=== PATIENT | male | born 1935 | race Caucasian/White ===

== ENCOUNTER 2019-02-18 20:51 | Observation (INO) | payer MEDICARE, OTHER ==
[2019-02-18 23:11] LABS: ADD MAN DIFF? NO
[2019-02-18 23:13] LABS: BASOPHIL # 0.1 10^3/ul (0.0-0.1); BASOPHILS % 0.6 % (0.0-2.0); EOSINOPHILS # 0.2 10^3/ul (0.0-0.5); EOSINOPHILS % 1.2 % (0.0-7.0); HEMATOCRIT 40.1 % (42.0-52.0); HEMOGLOBIN 12.5 g/dl (14.0-18.0); LYMPHOCYTES # 3.6 10^3/ul (0.8-2.9); MEAN CORPUSCULAR HEMOGLOBIN 25.1 pg (29.0-33.0); MEAN CORPUSCULAR HGB CONC 31.2 g/dl (32.0-37.0); MEAN CORPUSCULAR VOLUME 80.4 fl (82.0-101.0); MEAN PLATELET VOLUME 11.6 fl (7.4-10.4); MONOCYTE # 0.9 10^3/ul (0.3-0.9); MONOCYTES % 6.8 % (0.0-11.0); NEUTROPHIL # 8.1 10^3/ul (1.6-7.5); PLATELET COUNT 239 10^3/UL (140-415); RED BLOOD COUNT 4.99 10^6/ul (4.70-6.10); RED CELL DISTRIBUTION WIDTH 15.1 % (11.5-14.5)
[2019-02-18 23:13] LABS: WHITE BLOOD COUNT 12.9 10^3/ul (4.8-10.8)
[2019-02-18 23:20] LABS: ANION GAP 15 (5-13); BLOOD UREA NITROGEN 54 mg/dl (7-20); CALCIUM 9.8 mg/dl (8.4-10.2); CARBON DIOXIDE 28 mmol/L (21-31); CHLORIDE 96 mmol/L (97-110); CREATININE 6.96 mg/dl (0.61-1.24); GLUCOSE 130 mg/dl (70-220); MAGNESIUM 2.5 mg/dl (1.7-2.5); POTASSIUM 4.2 mmol/L (3.5-5.1); SODIUM 139 mmol/L (135-144)
[2019-02-18 23:32] LABS: TROPONIN-I 0.049 ng/ml (0.000-0.120)
[2019-02-19] MEDS ORDERED: ALBUTEROL/IPRATROPIUM (NEB) 3 ML AMP HHN (06:30)
[2019-02-19] MEDS ORDERED: NACL 0.9% 3 ML SYG IV (06:30)
[2019-02-19] MEDS ORDERED: ONDANSETRON 4 MG INJ IV (06:30)
[2019-02-19] MEDS ORDERED: ACETAMINOPHEN 325 MG TAB PO (06:30)
[2019-02-19 07:02] LABS: ADD MAN DIFF? NO
[2019-02-19 07:04] LABS: WHITE BLOOD COUNT 12.3 10^3/ul (4.8-10.8)
[2019-02-19 07:04] LABS: BASOPHIL # 0.1 10^3/ul (0.0-0.1); BASOPHILS % 0.6 % (0.0-2.0); EOSINOPHILS # 0.1 10^3/ul (0.0-0.5); HEMATOCRIT 36.7 % (42.0-52.0); HEMOGLOBIN 11.4 g/dl (14.0-18.0); LYMPHOCYTES # 3.9 10^3/ul (0.8-2.9); LYMPHOCYTES % 31.8 % (15.0-51.0); MEAN CORPUSCULAR HGB CONC 31.1 g/dl (32.0-37.0); MEAN CORPUSCULAR VOLUME 80.5 fl (82.0-101.0); MEAN PLATELET VOLUME 10.8 fl (7.4-10.4); MONOCYTE # 0.9 10^3/ul (0.3-0.9); MONOCYTES % 7.6 % (0.0-11.0); NEUTROPHIL # 7.2 10^3/ul (1.6-7.5); NEUTROPHILS % 58.6 % (39.0-77.0); PLATELET COUNT 204 10^3/UL (140-415); RED BLOOD COUNT 4.56 10^6/ul (4.70-6.10); RED CELL DISTRIBUTION WIDTH 15.1 % (11.5-14.5)
[2019-02-19 07:23] LABS: CREATINE KINASE 29 IU/L (23-200)
[2019-02-19 07:39] LABS: CK-MB 0.29 ng/ml (0.0-2.4); TROPONIN-I 0.058 ng/ml (0.000-0.120)
[2019-02-19 07:45] LABS: HEMOGLOBIN A1C 5.7 % (0-5.9)
[2019-02-19 07:59] LABS: ALANINE AMINOTRANSFERASE 18 IU/L (13-69); ALBUMIN 3.9 g/dl (3.3-4.9); ALBUMIN/GLOBULIN RATIO 1.39; ALKALINE PHOSPHATASE 86 IU/L (42-121); ANION GAP 12 (5-13); ASPARTATE AMINO TRANSFERASE 14 IU/L (15-46); BILIRUBIN,INDIRECT 0.3 mg/dl (0-1.1); BILIRUBIN,TOTAL 0.3 mg/dl (0.2-1.3); BLOOD UREA NITROGEN 57 mg/dl (7-20); CALCIUM 9.5 mg/dl (8.4-10.2); CARBON DIOXIDE 30 mmol/L (21-31); CHLORIDE 98 mmol/L (97-110); CHOL/HDL RATIO 2.8 RATIO; CHOLESTEROL 131 mg/dl (100-200); CREATININE 7.69 mg/dl (0.61-1.24); GLUCOSE 101 mg/dl (70-220); HDL CHOLESTEROL 46 mg/dl (31-75); LDL CHOLESTEROL,CALCULATED 50 mg/dl; POTASSIUM 3.8 mmol/L (3.5-5.1); SODIUM 140 mmol/L (135-144); TOTAL PROTEIN 6.7 g/dl (6.1-8.1); TRIGLYCERIDES 174 mg/dl (0-149)
[2019-02-19] MEDS ORDERED: NON-FORMULARY/PATIENT OWN MED (Omega-3 Fatty Acids/Fish Oil (Fish Oil 1,000 mg Capsule) 1 PO (09:00)
[2019-02-19] MEDS: MULTIVIT/CA CARB/B CMPLX/FA TAB PO (09:38)
[2019-02-19] MEDS: CLOPIDOGREL 75 MG TAB PO (09:38)
[2019-02-19] MEDS: FISH OIL 1,000 MG CAP PO (09:38)
[2019-02-19] MEDS: EZETIMIBE 10 MG TAB PO (09:38)
[2019-02-19] MEDS: HEPARIN 5,000 UNIT/1 ML VIAL SC ×2 (10:42→21:10)
[2019-02-19 12:25] LABS: CREATINE KINASE 32 IU/L (23-200)
[2019-02-19 12:37] LABS: CK-MB 0.32 ng/ml (0.0-2.4)
[2019-02-19 12:42] LABS: FREE T3 3.49 pg/ml (2.77-5.27)
[2019-02-19 12:43] LABS: FREE T4 (FREE THYROXINE) 1.03 ng/dl (0.85-1.93)
[2019-02-19] MEDS ORDERED: NON-FORMULARY/PATIENT OWN MED (Simvastatin 10 MG) PO (21:00)
[2019-02-19] MEDS: ATORVASTATIN 10 MG TAB PO (21:04)
[2019-02-20 06:18] LABS: ADD MAN DIFF? NO
[2019-02-20 06:23] LABS: WHITE BLOOD COUNT 11.5 10^3/ul (4.8-10.8)
[2019-02-20 06:23] LABS: BASOPHIL # 0.1 10^3/ul (0.0-0.1); BASOPHILS % 0.7 % (0.0-2.0); EOSINOPHILS # 0.2 10^3/ul (0.0-0.5); EOSINOPHILS % 2.1 % (0.0-7.0); HEMATOCRIT 35.3 % (42.0-52.0); HEMOGLOBIN 10.9 g/dl (14.0-18.0); LYMPHOCYTES # 3.7 10^3/ul (0.8-2.9); LYMPHOCYTES % 32.2 % (15.0-51.0); MEAN CORPUSCULAR HEMOGLOBIN 24.9 pg (29.0-33.0); MEAN CORPUSCULAR HGB CONC 30.9 g/dl (32.0-37.0); MEAN CORPUSCULAR VOLUME 80.8 fl (82.0-101.0); MEAN PLATELET VOLUME 11.5 fl (7.4-10.4); MONOCYTE # 0.9 10^3/ul (0.3-0.9); MONOCYTES % 7.4 % (0.0-11.0); NEUTROPHIL # 6.6 10^3/ul (1.6-7.5); NEUTROPHILS % 57.3 % (39.0-77.0); PLATELET COUNT 212 10^3/UL (140-415); RED BLOOD COUNT 4.37 10^6/ul (4.70-6.10); RED CELL DISTRIBUTION WIDTH 14.8 % (11.5-14.5)
[2019-02-20 07:10] LABS: ANION GAP 13 (5-13); BLOOD UREA NITROGEN 77 mg/dl (7-20); CALCIUM 9.4 mg/dl (8.4-10.2); CARBON DIOXIDE 27 mmol/L (21-31); CHLORIDE 97 mmol/L (97-110); GLUCOSE 93 mg/dl (70-220); MAGNESIUM 2.7 mg/dl (1.7-2.5); PHOSPHORUS 6.2 mg/dl (2.5-4.9); POTASSIUM 3.9 mmol/L (3.5-5.1); SODIUM 137 mmol/L (135-144)
[2019-02-20] MEDS: FISH OIL 1,000 MG CAP PO (08:56)
[2019-02-20] MEDS: MULTIVIT/CA CARB/B CMPLX/FA TAB PO (08:56)
[2019-02-20] MEDS: EZETIMIBE 10 MG TAB PO (08:56)
[2019-02-20] MEDS: CLOPIDOGREL 75 MG TAB PO (08:56)
[2019-02-20] MEDS: HEPARIN 5,000 UNIT/1 ML VIAL SC ×2 (09:04→21:39)
[2019-02-20] MEDS: ATORVASTATIN 10 MG TAB PO (21:25)
[2019-02-21] MEDS: CLOPIDOGREL 75 MG TAB PO (08:35)
[2019-02-21] MEDS: EZETIMIBE 10 MG TAB PO (08:35)
[2019-02-21] MEDS: MULTIVIT/CA CARB/B CMPLX/FA TAB PO (08:35)
[2019-02-21] MEDS: FISH OIL 1,000 MG CAP PO (08:35)
[2019-02-21] MEDS: HEPARIN 5,000 UNIT/1 ML VIAL SC (08:40)
[2019-02-21] MEDS: CIPROFLOXACIN 500 MG TAB PO (09:51)
[2019-02-21 12:03] LABS: HEPATITIS B SURFACE ANTIGEN NEGATIVE (NEGATIVE)
== END 2019-02-21 17:10 | disposition home or self-care (01) ==
LOC: E/R 20:51 → TEL 02-19 00:45
DX: R42 Dizziness and giddiness (principal); R55 Syncope and collapse; I12.0 Hypertensive chronic kidney disease with stage 5 chronic kidney disease or end stage renal disease; E11.22 Type 2 diabetes mellitus with diabetic chronic kidney disease; N18.6 End stage renal disease; Z99.2 Dependence on renal dialysis; N40.0 Benign prostatic hyperplasia without lower urinary tract symptoms; E78.5 Hyperlipidemia, unspecified; M10.9 Gout, unspecified; I35.0 Nonrheumatic aortic (valve) stenosis; Z86.73 Personal history of transient ischemic attack (TIA), and cerebral infarction without residual deficits; Z85.528 Personal history of other malignant neoplasm of kidney; Z79.02 Long term (current) use of antithrombotics/antiplatelets
CPT/HCPCS: 36415; 70450; 71045; 80048; 80053; 80061; 82550; 82553; 82962; 83036; 83735; 84100; 84439; 84443; 84481; 84484; 85025; 87340; 90935; 93005; 93306; 93880; 97161; 99285-25; G0378